=== PATIENT | female | born 1960 ===

== ENCOUNTER 2021-11-07 06:55 | Day surgery (SDC) | payer OTHER ==
[2021-11-07] MEDS ORDERED: Ringers Lactate 1,000 ML IV ONE (07:14)
[2021-11-07] MEDS ORDERED: NA CHLORIDE 0.9% 50 ML ONE (07:14)
[2021-11-07] MEDS ORDERED: CEFAZOLIN SODIUM 1 GM/VIAL ONE (07:14)
[2021-11-07] MEDS ORDERED: propofoL 200 MG/20 ML VIAL IV ONE (07:26)
[2021-11-07] MEDS ORDERED: FENTANYL CITR 100 MCG/2 ML ONE ×2 (07:26→08:43)
[2021-11-07] MEDS ORDERED: LIDOCAINE 1% MPF 5 ML VIAL ONE (07:26)
[2021-11-07] MEDS ORDERED: MIDAZOLAM HCL 2 MG/2 ML INJ ONE (07:26)
[2021-11-07] MEDS ORDERED: ROCURONIUM 50 MG/5 ML VIAL IV ONE ×2 (07:26→09:30)
[2021-11-07] MEDS: BUPIVACAINE 0.25% PF 10 ML VIAL ONE ×2 (07:31→08:30)
[2021-11-07] MEDS ORDERED: ACETAMINOPHEN 500 MG TAB ONE (08:02)
[2021-11-07] MEDS ORDERED: CELECOXIB 100 MG CAPSULE ONE (08:02)
[2021-11-07] MEDS ORDERED: dexAMETHasone 10 MG/ML VIAL ONE ×2 (08:22→08:39)
[2021-11-07] MEDS ORDERED: ONDANSETRON 4 MG/2 ML VIAL ONE (08:25)
[2021-11-07] MEDS ORDERED: BUPIVACAINE 0.5% Inj,MDV 50 mL VIAL ONE (08:38)
[2021-11-07] MEDS ORDERED: BUPIVACAINE 0.25% PF 10 ML VIAL ONE (08:39)
[2021-11-07] MEDS ORDERED: KETOROLAC 30 MG/ML INJ ONE (08:42)
[2021-11-07] MEDS ORDERED: GLYCOPYRROLATE 0.2 MG/ML SYR ONE (09:18)
--- NOTE | 2021-11-07 09:19 | P.OP ---
Preoperative diagnosis: Epigastric Ventral Incisional Hernia Postoperative diagnosis: Epigastric Ventral Incisional Hernia Primary procedure: Laparoscopic Epigastric Ventral Incisional Hernia Repair with mesh Anesthesia: GETA + Local Estimated blood loss: <10cc Specimen: Pre-peritoneal adipose Findings: 5cm neck, with pre-peritoneal fat and omental entrapped Complications: None Implants: Bard Ventralite ST with echo 15.7cm round, reliatack absorbable tacs Transferred to: Recovery Room Condition: Good
[2021-11-07] MEDS ORDERED: NEOSTIGMINE 1 MG/ML -5 ML ONE (09:23)
[2021-11-07] MEDS: HYDROMORPHONE HCL 1 MG/ML INJ ONE ×4 (10:32→10:50)
[2021-11-07] MEDS ORDERED: HYDROCODONE/APAP 5/325 MG TAB ONE (11:30)
[2021-11-07 13:12] VITALS: BP 133/83; TEMP 97.5; O2SAT 95
--- NOTE | 2021-11-07 20:58 | OP ---
Date of Procedure: 11/07/2021 Surgeon: Constantino Rees MD, Preoperative Diagnosis: Epigastric ventral incisional hernia. Postoperative Diagnosis: Epigastric ventral incisional hernia. Procedure Performed: Laparoscopic epigastric ventral incisional hernia repair with mesh. Anesthesia: General endotracheal plus local with 0.25% Marcaine without epinephrine. Estimated Blood Loss: 10 cc. Specimen: Preperitoneal adipose tissue. Findings: Approximately 5 cm neck of hernia with preperitoneal fat and omentum entrapped requiring r esection. Complications: None. Implants: 1.Bard Ventralight ST mesh with Echo positioning System, 15.7 cm round. 2.ReliaTack absorbable tacks fixation system, approximately 60 utilized. Disposition: The patient transferred to recovery room in good condition. Procedure In Detail: After informed consent was obtained, patient brought to the operating room, pre pped and draped in the usual sterile fashion. After adequate anesthesia achieved, the left upper sherry drant area was anesthetized with 0.25% Marcaine, sharply incised. A 5 mm trocar was placed in the ab domen without evidence of complication. Insufflation obtained to 15 mmHg at this time. There was no injury vital structures upon entry of the abdomen. Inspection showed that there was omentum contain ed within the epigastric hernia at this time as well as preperitoneal fat which was visualized on pal pation. I then placed additional trocars, one in left lower quadrant, one in the right upper quadran t under direct visualization without evidence of complication. I then proceeded to do adhesiolysis o f the omentum from the hernia sac as this was a previous ventral incisional hernia likely from her la paroscopic cholecystectomy performed years prior. After this was removed, I found a significant amou nt of preperitoneal fat contained within the hernia, and as such, I resected this portion and swept c lean the landing position for the mesh to the anterior abdominal wall. This adipose tissue was then removed and placed in EndoCatch bag and removed through the umbilical trocar, sent off for pathologic examination. The abdomen was reinflated at this point. The area was inspected. No hemostatic edita uvers required. The LigaSure device was used to resect this tissue and incise the mesh appropriately and brought the Endo Stitch with V-Loc suture. 0 V-Loc was used to do a running suture to close the ventral hernia defect in the epigastrium. After this was closed, I then brought a 15.7 cm round Bar d Ventralight ST mesh with Echo positioning system, deployed at the central portion of the previous d efect and deployed the balloon at this point. At this point, the mesh was secured to the anterior ab dominal wall with a single crown of tacks. The balloon deployment system was then removed and checke d on the back table, found to be in its entirety. I then used an additional 30 tacks to secure the m esh to the anterior abdominal wall with good apposition of the tissues, no bleeding or hemostat was r equired. Mesh was in good apposition to the anterior abdominal wall. At this point, I turned my att ention to the left lower quadrant 12 mm trocar. This was the only 12 mm trocar throughout the case. The additional trocars were 5 mm trocars. I then closed this defect using a Moises-Ronnie suture passer with a 0 Vicryl intrafascial with good approximation of tissues. The abdomen completely desuf flated under direct visualization without evidence of complication. All skin incisions were copiousl y irrigated and closed with 4-0 Monocryl in running fashion. Dermabond placed over top. The patient tolerated the procedure well without evidence of complication, transferred to PACU in good condition . All counts were correct at the end of the case. TELLO/MARIA D Voice ID: [id number] Report ID: [id number]
== END 2021-11-07 11:55 | disposition home or self-care (01) ==
LOC: OR 06:55
PROVIDERS: ATTEND Surgery
PROC: 0WUF4JZ Supplement Abdominal Wall with Synthetic Substitute, Percutaneous Endoscopic Approach (ICD-10-PCS; principal; 2021-11-07 08:00)
DX: K43.2 Incisional hernia without obstruction or gangrene (principal)
CPT/HCPCS: 88302; 49654; J2704; J2250; J3010 ×2; J1100 ×2; J1170 ×2; J2710; J7120; J2405; J0690